=== PATIENT | male | born 1990 | race Caucasian/White ===

== ENCOUNTER 2016-12-05 23:47 | Emergency (ER) | payer OTHER ==
[~2016-12-05] VITALS: Ht 167.6 cm; Wt 75.0 kg
[2016-12-05 23:54] VITALS: Ht 167.6 cm; Wt 75.0 kg
--- NOTE | 2016-12-06 01:30 | ERD ---
ER Documentation Chief Complaint Date/Time DATE: 12/06/16 TIME: 01:27 Chief Complaint glf a few hours ago, - ko. perrla, normal neuro, abrasion on r side of face HPI 26-year-old male presents to emergency department for complaints of right eyebrow laceration wound after falling this afternoon. Patient did not loose consciousness after the injury, patient did not have any vomiting, patient does complain of dizziness and lightheadedness. Patient describes the pain as flexion scale, is worse upon touching the area. Patient has slight coffee grounds on the laceration wound to stop the bleeding.Bleeding has stopped at this time. Patient did not take any medications to help with symptoms. ROS All systems reviewed and are negative except as per history of present illness. Medications Home Meds Reported Medications [none] Unknown Strength No Conflict Check 12/06/16 Allergies Allergies: Coded Allergies: No Known Allergy (Unverified , 12/05/16) PMhx/Soc Last tetanus immunization was 3 years ago. Medical and Surgical Hx: pt denies Medical Hx, pt denies Surgical Hx Hx Alcohol Use: No Hx Substance Use: No Hx Tobacco Use: No Smoking Status: Never smoker FmHx Family History: No coronary disease, No diabetes, No other Physical Exam Vitals Vital Signs Date Time Temp Pulse Resp B/P Pulse Ox O2 Delivery O2 Flow Rate FiO2 12/05/16 23:54 97.6 71 18 119/70 97 Physical Exam GENERAL: The patient is well developed and appropriate for usual state of health, in no apparent distress. CHEST: Clear to auscultation bilaterally. There are no rales, wheezes or rhonchi. HEART: Regular rate and rhythm. No murmurs, clicks, rubs or gallops. No S3 or S4. ABDOMEN: Soft, nontender and nondistended. Good bowel sounds. No rebound or guarding. No gross peritonitis. No gross organomegaly or masses. No Sosa sign or McBurney point tenderness. BACK: No midline or flank tenderness. EXTREMITIES: Equal pulses bilaterally. There is no peripheral clubbing, cyanosis or edema. No focal swelling or erythema. Full range of motion. Grossly neurovascularly intact. NEURO: Alert and oriented. Cranial nerves 2-12 intact. Motor strength in all 4 extremities with 5/5 strength. Sensation grossly intact. Normal speech and gait. Negative Romberg sign. Negative pronator drift. SKIN: 3 centimeters superficial laceration wound noted in the right forehead, coffee-ground particles are noted on the wound. There is no apparent rash or petechia. The skin is warm and dry. HEMATOLOGIC AND LYMPHATIC: There is no evidence of excessive bruising or lymphedema. No gross cervical, axillary, or inguinal lymphadenopathy. Results 24 hrs Current Medications Medications (Trade) Dose Ordered Sig/Fabian Route PRN Reason Start Time Stop Time Status Last Admin Dose Admin Cefazolin Sodium (Ancef) 1 gm ONCE ONCE IM 12/06/16 02:00 12/06/16 02:01 DC 12/06/16 02:09 Lidocaine (Xylocaine 1% (Mdv) 20 ml) 2 ml ONCE ONCE SC 12/06/16 02:00 12/06/16 02:01 DC 12/06/16 02:01 Ancef was given to prevent infection of the affected area... PROCEDURE: CT head, without contrast. CLINICAL INDICATION: Head injury. TECHNIQUE: Noncontrast CT examination of the head, with axial, sagittal and coronal reformatted images. Automated dose exposure control was employed. CTDI: 45.01 and DLP: 720.23. COMPARISON: None. FINDINGS: Note acute hemorrhage. Subarachnoid spaces are substantially preserved and symmetric. Ventricles are unremarkable. No mass effect. Cervantes-white matter distinction is preserved without evident decreased attenuation to suggest acute or recent infarct. Sinuses and osseous structures are unremarkable. IMPRESSION: No acute process in the head. RPTAT: [facility] Physician Annia Date Time Electronically viewed and signed by Physician Annia on 12/06/2016 02:53 RS/ CC: LAZARO VILLALTA ASSISTANT OFFICE MANAGER Procedures/MDM Procedure Note: After obtaining informed consent, the wound was irrigated with 250 ml of normal saline and cleaned with diluted betadine. The area was numbed with 2 mL of 1% lidocaine. The wound was debrided, coffee-ground particles were tried to be removed, after multiple attempts, unable to completely remove coffee-ground particles. Using aseptic technique, the wound was approximated using a Steri- Strips. After the procedure, the wound was well approximated. Patient tolerated procedure well. Medical Decision Making: Patient symptoms with slight is consistent with a concussion. Patient also has a laceration, was able to repaired using Steri- Strips, closure with suturing not indicated at time since there are coffee- ground particles in the affected area, high risk for infection. Patient was given Ancef here in emergency department. Patient will also be sent home with Keflex to prevent infection. There is low suspicion for neurological emergencies at this time since patients neurologic exam is normal. Patient did not have any altered level consciousness, vomiting, changes in balance or memory after incident. Patients CT scan of the head does not show any neurological emergencies at this time. Patient was advised to do wound check with primary care doctor in 2 days. Patient was advised to return to emergency department for new worsening symptoms Dispostion: Home. Stable Departure Diagnosis: Primary Impression: Concussion Encounter type: initial encounter Loss of consciousness presence/duration: without LOC Qualified Code: S06.0X0A - Concussion, without LOC, initial encounter Additional Impression: Facial laceration Encounter type: initial encounter Qualified Code: S01.81XA - Facial laceration, initial encounter Condition: Stable Patient Instructions: Concussion, Laceration, Face (Suture Or Tape) LAZARO VILLALTA NP December 06, 2016 01:30
[2016-12-06] MEDS ORDERED: CEFAZOLIN 1 GM INJ IM ONE (02:00)
[2016-12-06] MEDS ORDERED: LIDOCAINE 1% (MDV) 20 ML INJ SC ONE (02:00)
--- NOTE | 2016-12-06 02:53 | RADRPT ---
PROCEDURE: CT head, without contrast. CLINICAL INDICATION: Head injury. TECHNIQUE: Noncontrast CT examination of the head, with axial, sagittal and coronal reformatted im ages. Automated dose exposure control was employed. CTDI: 45.01 and DLP: 720.23. COMPARISON: None. FINDINGS: Note acute hemorrhage. Subarachnoid spaces are substantially preserved and symmetric. Ventricles are unremarkable. No mass effect. Cervantes-white matter distinction is preserved without evident decreased attenuation t o suggest acute or recent infarct. Sinuses and osseous structures are unremarkable. IMPRESSION: No acute process in the head. RPTAT: [facility] Physician Annia Date Time Electronically viewed and signed by Physician Annia on 12/06/2016 02:53 RS/
[2016-12-06] MEDS ORDERED: CEPH-443 PO (03:23)
== END 2016-12-06 03:35 | disposition home or self-care (01) ==
LOC: FTE 23:47
DX: S06.0X0A Concussion without loss of consciousness, initial encounter (principal); S01.81XA Laceration without foreign body of other part of head, initial encounter; W18.30XA Fall on same level, unspecified, initial encounter; Y92.9 Unspecified place or not applicable
CPT/HCPCS: 70450; 96372; J0690; Z7502; Z7610